=== PATIENT | female | born 1975 | race Caucasian/White ===

== ENCOUNTER 2019-01-01 19:40 | Inpatient (IN) | payer BC, OTHER ==
[2019-01-01] MEDS ORDERED: ELECTROLYTE-148 SOLN 500 ML IV ONE ×2 (19:45→20:45)
[2019-01-01 21:02] LABS: BASO % 0.5 % (0-2.0); EOS % 1.7 % (0-4.5); HEMATOCRIT 29.6 % (32.4-45.2); HEMOGLOBIN 9.5 GM/dL (10.7-15.3); LYMPH % 19.3 % (8-40); MCH 27.4 pg (25.7-33.7); MCHC 32.2 g/dl (32.0-36.0); MEAN CELL VOLUME 85.1 fl (80-96); MEAN PLT VOLUME 9.6 fl (7.5-11.1); MONO % 9.8 % (3.8-10.2); NEUT % 68.7 % (42.8-82.8); PLATELET COUNT 225 K/MM3 (134-434); RBC 3.48 M/mm3 (3.60-5.2); WHITE BLOOD COUNT 15.1 K/mm3 (4.0-10.0)
[2019-01-01] MEDS ORDERED: BETAMET ACET/BETAMET NA PH 30 MG/5 ML VIAL ONE (21:04)
[2019-01-02] MEDS: ELECTROLYTE-148 SOLN 1,000 ML IV SCH (02:30)
[2019-01-02 11:59] VITALS: BMI 33.3
[2019-01-02 12:01] LABS: BASO % 0.2 % (0-2.0); HEMATOCRIT 28.9 % (32.4-45.2); HEMOGLOBIN 9.3 GM/dL (10.7-15.3); LYMPH % 13.2 % (8-40); MCH 27.7 pg (25.7-33.7); MCHC 32.3 g/dl (32.0-36.0); MEAN CELL VOLUME 85.7 fl (80-96); MEAN PLT VOLUME 9.7 fl (7.5-11.1); MONO % 5.8 % (3.8-10.2); NEUT % 80.8 % (42.8-82.8); PLATELET COUNT 230 K/MM3 (134-434); RBC 3.38 M/mm3 (3.60-5.2); WHITE BLOOD COUNT 15.1 K/mm3 (4.0-10.0)
[2019-01-02 12:20] LABS: INR 0.97 (0.83-1.09); PROTHROMBIN TIME (PATIENT) 11.4 SEC (9.7-13.0)
[2019-01-02 12:23] LABS: ACTIVATED PTT 23.7 SECONDS (25.2-36.5)
[2019-01-02 12:30] LABS: BLOOD UREA NITROGEN 4.4 mg/dL (7-18); CALCIUM 9.2 mg/dL (8.5-10.1); CREATININE 0.5 mg/dL (0.55-1.3); POTASSIUM 3.8 mmol/L (3.5-5.1)
--- NOTE | 2019-01-02 14:38 | HP ---
Past Medical History - Admission Chief Complaint: Vaginal bleeding History of Present Illness: 43 yo @ 34.1 weeks gestation, EDC 02/12/19, presents to L&D c/o vaginal bleeding. Sonogram shows evidence of complete placenta previa. Decision was made for admission. Betamethasone injection received. History Source: Patient Limitations to Obtaining History: No Limitations - Past Medical History ...: 5 ...Para: 3 ...Term: 3 ...Spon : 1 ...EDC by Sono: 02/12/19 - Past Surgical History Past Surgical History: Yes: None Hx Myomectomy: No Hx Transabdominal Cerclage: No - Smoking History Smoking history: Never smoked Have you smoked in the past 12 months: No - Alcohol/Substance Use Hx Alcohol Use: No - Social History Usual Living Arrangement: Yes: With Significant Other History of Recent Travel: No Home Medications - Allergies Allergies/Adverse Reactions: Allergies Allergy/AdvReac Type Severity Reaction Status Date / Time No Known Allergies Allergy Verified 01/01/19 21:38 - Home Medications Home Medications: Ambulatory Orders 19 Tablet 1 tab PO DAILY 01/01/19 Review of Systems - Review of Systems Constitutional: reports: No Symptoms Eyes: reports: No Symptoms HENT: reports: No Symptoms Neck: reports: No Symptoms Cardiovascular: reports: No Symptoms Respiratory: reports: No Symptoms Gastrointestinal: reports: No Symptoms Genitourinary: reports: Vaginal Bleeding Breasts: reports: No Symptoms Reported Musculoskeletal: reports: No Symptoms Integumentary: reports: No Symptoms Neurological: reports: No Symptoms Endocrine: reports: No Symptoms Hematology/Lymphatic: reports: No Symptoms Psychiatric: reports: No Symptoms Pain Intensity: 0 Physical Exam - Maternity Vital Signs: Vital Signs Temperature 98.2 F 01/02/19 03:56 Pulse Rate 79 01/02/19 03:56 Respiratory Rate 20 01/02/19 03:56 Blood Pressure 110/58 L 01/02/19 03:56 O2 Sat by Pulse Oximetry (%) Constitutional: Yes: Well Nourished Eyes: Yes: Conjunctiva Clear HENT: Yes: Atraumatic Neck: Yes: Supple Cardiovascular: Yes: Regular Rate and Rhythm Lungs: Clear to auscultation Breast(s): Yes: WNL - Abdominal Exam/OB Number of Fetuses: Single Presentation: Vertex Contractions: No Intensity: Unaware - Vaginal Exam/OB Vaginal Bleediing: Yes - Physical Exam ...Motor Strength: WNL Psychiatric: Yes: Alert, Oriented - Labs Lab Results: CBC, BMP 01/02/19 11:22 01/02/19 11:22 Problem List - Problems (1) Complete placenta previa with hemorrhage, third trimester Code(s): O44.13 - COMPLETE PLACENTA PREVIA WITH HEMORRHAGE, THIRD TRIMESTER (2) with 34 completed weeks gestation Code(s): Z3A.34 - 34 WEEKS GESTATION OF Assessment/Plan 34 weeks gestation Complete Placenta Previa S/P steroid injection Admit to Antepartum. IV fluid Regular diet Daily CBC scheduled for Saturday ( 01/05/19 )
[2019-01-02] MEDS ORDERED: BETAMET ACET/BETAMET NA PH 30 MG/5 ML VIAL IM SCH (19:45)
[2019-01-02] MEDS: FERROUS SO4 325 MG TABLET (FP) PO SCH (22:10)
[2019-01-03] MEDS: ELECTROLYTE-148 SOLN 1,000 ML IV SCH ×2 (05:30→21:30)
--- NOTE | 2019-01-03 06:35 | PN ---
Progress Note (short form) - Note Progress Note: 43 yo @ 34.2 weeks gestation, EDC 02/12/19, presents to L&D c/o vaginal bleeding. Sonogram shows evidence of complete Placenta Previa. Decision was made for admission. Betamethasone injection received. FHR : 150 bpm, good accelerations, occasional drop in heart rate ( to 80-90 bpm ) [place] : No contractions VE : No heavy bleeding, only mild bloody discharge. A/P : Complete Placenta Previa S/P Betamethasone Continuous monitoring Daily CBC For on Saturday or before if necessary Problem List - Problems (1) Complete placenta previa with hemorrhage, third trimester Code(s): O44.13 - COMPLETE PLACENTA PREVIA WITH HEMORRHAGE, THIRD TRIMESTER (2) with 34 completed weeks gestation Code(s): Z3A.34 - 34 WEEKS GESTATION OF
[2019-01-03] MEDS: PRENATAL VITAMINS W/ FOLIC ACID TABLET (FP) PO SCH (10:00)
[2019-01-03] MEDS: FERROUS SO4 325 MG TABLET (FP) PO SCH (10:00)
[2019-01-03 21:54] LABS: HEMATOCRIT 29.4 % (32.4-45.2); HEMOGLOBIN 9.2 GM/dL (10.7-15.3); MCH 27.3 pg (25.7-33.7); MCHC 31.4 g/dl (32.0-36.0); MEAN CELL VOLUME 86.9 fl (80-96); MEAN PLT VOLUME 9.9 fl (7.5-11.1); PLATELET COUNT 233 K/MM3 (134-434); RBC 3.38 M/mm3 (3.60-5.2); RDW 15.2 % (11.6-15.6); WHITE BLOOD COUNT 19.7 K/mm3 (4.0-10.0)
[2019-01-03] MEDS: CEFAZOLIN 1 GM/D5W 1 GM/50 ML BAG IVPB SCH (23:30)
[2019-01-03] MEDS ORDERED: ceFAZolin SODIUM 1 GM VIAL ONE (23:44)
[2019-01-04] MEDS: ELECTROLYTE-148 SOLN 1,000 ML IV SCH (02:00)
[2019-01-04] MEDS ORDERED: ceFAZolin SODIUM 1 GM VIAL ONE ×2 (07:29→15:33)
[2019-01-04] MEDS: CEFAZOLIN 1 GM/D5W 1 GM/50 ML BAG IVPB SCH ×2 (07:30→15:30)
[2019-01-04 08:40] LABS: HEMATOCRIT 25.9 % (32.4-45.2); HEMOGLOBIN 8.4 GM/dL (10.7-15.3); MCH 27.9 pg (25.7-33.7); MCHC 32.5 g/dl (32.0-36.0); MEAN CELL VOLUME 85.9 fl (80-96); MEAN PLT VOLUME 9.9 fl (7.5-11.1); PLATELET COUNT 211 K/MM3 (134-434); RBC 3.02 M/mm3 (3.60-5.2); RDW 15.2 % (11.6-15.6); WHITE BLOOD COUNT 16.2 K/mm3 (4.0-10.0)
[2019-01-04] MEDS: PRENATAL VITAMINS W/ FOLIC ACID TABLET (FP) PO SCH (11:00)
[2019-01-04] MEDS: FERROUS SO4 325 MG TABLET (FP) PO SCH (11:00)
--- NOTE | 2019-01-04 18:27 | PN ---
Progress Note (short form) - Note Progress Note: 43 yo @ 34.3 weeks gestation, EDC 02/12/19, presents to L&D c/o vaginal bleeding. Sonogram shows evidence of complete Placenta Previa. FHR : Reassuring [place] : No contractions VE : No heavy bleeding A/P : Complete Placenta Previa S/P Betamethasone Pre op for NPO after midnight Problem List - Problems (1) Complete placenta previa with hemorrhage, third trimester Code(s): O44.13 - COMPLETE PLACENTA PREVIA WITH HEMORRHAGE, THIRD TRIMESTER (2) with 34 completed weeks gestation Code(s): Z3A.34 - 34 WEEKS GESTATION OF
[2019-01-05] MEDS: DEXTROSE 5%-LACTATED RINGERS 1,000 ML IV SCH (02:00)
--- NOTE | 2019-01-05 07:42 | PN ---
Progress Note (short form) - Note Progress Note: 43 yo @ 34.4 weeks gestation, EDC 02/12/19, presents to L&D c/o vaginal bleeding. Sonogram shows evidence of complete Placenta Previa. She was scheduled for c- section but opted to postpone surgery. FHR : Reassuring [place] : No contractions VE : No bleeding, no ROM A/P : Complete Placenta Previa S/P Betamethasone Transfer to antepartum DVT prophylaxis Daily CBC Regular diet Continue NST Q 4hrs [place] at 36 weeks or before if bleeding Problem List - Problems (1) Complete placenta previa with hemorrhage, third trimester Code(s): O44.13 - COMPLETE PLACENTA PREVIA WITH HEMORRHAGE, THIRD TRIMESTER (2) with 34 completed weeks gestation Code(s): Z3A.34 - 34 WEEKS GESTATION OF
[2019-01-05 08:21] LABS: BASO % 0.3 % (0-2.0); EOS % 1.1 % (0-4.5); HEMATOCRIT 28.2 % (32.4-45.2); HEMOGLOBIN 8.9 GM/dL (10.7-15.3); MCH 27.6 pg (25.7-33.7); MCHC 31.7 g/dl (32.0-36.0); MEAN CELL VOLUME 86.9 fl (80-96); MEAN PLT VOLUME 9.8 fl (7.5-11.1); MONO % 12.3 % (3.8-10.2); NEUT % 67.3 % (42.8-82.8); PLATELET COUNT 209 K/MM3 (134-434); RBC 3.24 M/mm3 (3.60-5.2); RDW 15.1 % (11.6-15.6); WHITE BLOOD COUNT 16.4 K/mm3 (4.0-10.0)
[2019-01-05] MEDS: FERROUS SO4 325 MG TABLET (FP) PO SCH ×2 (10:36→21:17)
[2019-01-05] MEDS: PRENATAL VITAMINS W/ FOLIC ACID TABLET (FP) PO SCH (10:36)
[2019-01-05] MEDS: CEFAZOLIN 1 GM/D5W 1 GM/50 ML BAG IVPB SCH (10:37)
[2019-01-06 08:10] LABS: BASO % 0.2 % (0-2.0); EOS % 1.9 % (0-4.5); HEMATOCRIT 28.6 % (32.4-45.2); HEMOGLOBIN 9.2 GM/dL (10.7-15.3); LYMPH % 19.1 % (8-40); MCH 27.6 pg (25.7-33.7); MCHC 32.3 g/dl (32.0-36.0); MEAN CELL VOLUME 85.5 fl (80-96); MEAN PLT VOLUME 9.6 fl (7.5-11.1); MONO % 10.4 % (3.8-10.2); NEUT % 68.4 % (42.8-82.8); PLATELET COUNT 222 K/MM3 (134-434); RBC 3.35 M/mm3 (3.60-5.2); RDW 15.5 % (11.6-15.6)
--- NOTE | 2019-01-06 10:22 | PN ---
Progress Note (short form) - Note Progress Note: 43 yo @ 34.5 weeks gestation, EDC 02/12/19, presents to L&D c/o vaginal bleeding. Sonogram shows evidence of complete Placenta Previa. She was scheduled for c- section but opted to postpone surgery. FHR : Reassuring [place] : No contractions VE : No bleeding, no ROM A/P : Complete Placenta Previa S/P Betamethasone DVT prophylaxis Daily CBC Regular diet Continue NST Q 4hrs Consider at 36 weeks or before if bleeding Problem List - Problems (1) Complete placenta previa with hemorrhage, third trimester Code(s): O44.13 - COMPLETE PLACENTA PREVIA WITH HEMORRHAGE, THIRD TRIMESTER (2) with 34 completed weeks gestation Code(s): Z3A.34 - 34 WEEKS GESTATION OF
[2019-01-06] MEDS: FERROUS SO4 325 MG TABLET (FP) PO SCH ×2 (10:50→21:50)
[2019-01-06] MEDS: PRENATAL VITAMINS W/ FOLIC ACID TABLET (FP) PO SCH (10:50)
--- NOTE | 2019-01-07 07:07 | PN ---
Progress Note (SOAP) - Current Medications Current Medications: Active Medications Ferrous Sulfate (Feosol -) 325 mg PO BID [facility] Last Admin: 01/06/19 21:50 Dose: Not Given Parenteral Electrolytes (Plasma-Lyte 148 -) 1,000 mls @ 125 mls/hr IV ASDIR [facility] Last Admin: 01/04/19 02:00 Dose: 125 mls/hr Dextrose/Lactated Ringer's (D5-Lr -) 1,000 mls @ 125 mls/hr IV ASDIR [facility] Last Admin: 01/05/19 02:00 Dose: 125 mls/hr Multivit/Folic Acid/Iron ( Vitamins (Sjr) -) 1 tab PO DAILY [facility] Last Admin: 01/06/19 10:50 Dose: 1 tab - Objective Vital Signs: Vital Signs Temperature 98.2 F 01/06/19 22:00 Pulse Rate 95 H 01/06/19 22:00 Respiratory Rate 18 01/06/19 22:00 Blood Pressure 130/75 01/06/19 22:00 O2 Sat by Pulse Oximetry (%) Constitutional: Yes: Well Nourished, No Distress Neck: Yes: WNL Cardiovascular: Yes: WNL Gastrointestinal: Yes: WNL, Soft Extremities: Yes: WNL Edema: No Neurological: Yes: WNL, Alert, Oriented Labs Lab Results: CBC, BMP 01/06/19 07:26 01/02/19 11:22 Problem List - Problems (1) Complete placenta previa with hemorrhage, third trimester Code(s): O44.13 - COMPLETE PLACENTA PREVIA WITH HEMORRHAGE, THIRD TRIMESTER Assessment/Plan Complete Previa
[2019-01-07] MEDS: PRENATAL VITAMINS W/ FOLIC ACID TABLET (FP) PO SCH (09:54)
[2019-01-07] MEDS: FERROUS SO4 325 MG TABLET (FP) PO SCH ×2 (09:58→22:47)
[2019-01-07 14:01] LABS: BASO % 0.4 % (0-2.0); EOS % 1.2 % (0-4.5); HEMATOCRIT 29.9 % (32.4-45.2); HEMOGLOBIN 9.6 GM/dL (10.7-15.3); LYMPH % 17.6 % (8-40); MCH 27.4 pg (25.7-33.7); MEAN CELL VOLUME 85.6 fl (80-96); MEAN PLT VOLUME 9.3 fl (7.5-11.1); MONO % 9.2 % (3.8-10.2); NEUT % 71.6 % (42.8-82.8); PLATELET COUNT 243 K/MM3 (134-434); RBC 3.49 M/mm3 (3.60-5.2); RDW 15.6 % (11.6-15.6); WHITE BLOOD COUNT 14.8 K/mm3 (4.0-10.0)
[2019-01-07] MEDS: DEXTROSE 5%-LACTATED RINGERS 1,000 ML IV SCH ×2 (14:24)
--- NOTE | 2019-01-08 06:03 | PN ---
Progress Note, Physician History of Present Illness: 43 y/o female here, admitted with complete placenta previa. Occasional spotting , no heavy bleeding. CBC stable. +FM. NSTs reactive - Current Medication List Current Medications: Active Medications Ferrous Sulfate (Feosol -) 325 mg PO BID [facility] Last Admin: 01/07/19 22:47 Dose: Not Given Dextrose/Lactated Ringer's (D5-Lr -) 1,000 mls @ 125 mls/hr IV ASDIR [facility] Last Admin: 01/07/19 14:24 Dose: 125 mls/hr Multivit/Folic Acid/Iron ( Vitamins (Sjr) -) 1 tab PO DAILY [facility] Last Admin: 01/07/19 09:54 Dose: 1 tab - Objective Vital Signs: Vital Signs Temperature 98.3 F 01/08/19 02:00 Pulse Rate 88 01/08/19 02:00 Respiratory Rate 18 01/08/19 02:00 Blood Pressure 126/66 01/08/19 02:00 O2 Sat by Pulse Oximetry (%) Constitutional: Yes: Well Nourished, No Distress, Calm Cardiovascular: Yes: Regular Rate and Rhythm Respiratory: Yes: Regular Gastrointestinal: Yes: Normal Bowel Sounds, Soft Extremities: Yes: WNL Neurological: Yes: Alert, Oriented Psychiatric: Yes: Alert, Oriented Labs: CBC, BMP 01/07/19 13:40 01/02/19 11:22 INR, PTT INR 0.97 (0.83-1.09) 01/02/19 11:22 Problem List - Problems (1) Complete placenta previa with hemorrhage, third trimester Code(s): O44.13 - COMPLETE PLACENTA PREVIA WITH HEMORRHAGE, THIRD TRIMESTER Assessment/Plan Continue inpatient care daily CBC to keep 2 units PRBC crossmatched with bloodbank daily NST plan for c section at 36 weeks or before if has bleeding
[2019-01-08] MEDS: CEFAZOLIN 1 GM/D5W 1 GM/50 ML BAG IVPB SCH (07:43)
[2019-01-08] MEDS: PRENATAL VITAMINS W/ FOLIC ACID TABLET (FP) PO SCH (09:51)
[2019-01-08] MEDS: FERROUS SO4 325 MG TABLET (FP) PO SCH ×2 (09:54→21:14)
[2019-01-08 10:25] LABS: BASO % 0.2 % (0-2.0); EOS % 1.7 % (0-4.5); HEMATOCRIT 31.1 % (32.4-45.2); HEMOGLOBIN 9.9 GM/dL (10.7-15.3); LYMPH % 19.1 % (8-40); MCH 27.8 pg (25.7-33.7); MEAN CELL VOLUME 86.8 fl (80-96); MEAN PLT VOLUME 10.1 fl (7.5-11.1); MONO % 7.9 % (3.8-10.2); NEUT % 71.1 % (42.8-82.8); PLATELET COUNT 237 K/MM3 (134-434); RBC 3.58 M/mm3 (3.60-5.2); RDW 15.6 % (11.6-15.6); WHITE BLOOD COUNT 14.5 K/mm3 (4.0-10.0)
[2019-01-09] MEDS: PRENATAL VITAMINS W/ FOLIC ACID TABLET (FP) PO SCH (09:33)
[2019-01-09 10:52] LABS: BASO % 0.2 % (0-2.0); EOS % 1.5 % (0-4.5); HEMATOCRIT 29.5 % (32.4-45.2); HEMOGLOBIN 9.7 GM/dL (10.7-15.3); LYMPH % 16.9 % (8-40); MCH 27.9 pg (25.7-33.7); MCHC 32.7 g/dl (32.0-36.0); MEAN CELL VOLUME 85.2 fl (80-96); MEAN PLT VOLUME 9.8 fl (7.5-11.1); NEUT % 72.4 % (42.8-82.8); PLATELET COUNT 225 K/MM3 (134-434); RBC 3.47 M/mm3 (3.60-5.2); RDW 15.6 % (11.6-15.6); WHITE BLOOD COUNT 13.8 K/mm3 (4.0-10.0)
[2019-01-09] MEDS: FERROUS SO4 325 MG TABLET (FP) PO SCH (19:05)
[2019-01-10] MEDS: PRENATAL VITAMINS W/ FOLIC ACID TABLET (FP) PO SCH (09:24)
[2019-01-10] MEDS: FERROUS SO4 325 MG TABLET (FP) PO SCH ×2 (09:24→21:41)
[2019-01-10 10:23] LABS: BASO % 0.2 % (0-2.0); EOS % 1.1 % (0-4.5); HEMATOCRIT 31.7 % (32.4-45.2); HEMOGLOBIN 10.2 GM/dL (10.7-15.3); LYMPH % 18.7 % (8-40); MCH 27.6 pg (25.7-33.7); MCHC 32.1 g/dl (32.0-36.0); MEAN PLT VOLUME 9.7 fl (7.5-11.1); MONO % 5.7 % (3.8-10.2); NEUT % 74.3 % (42.8-82.8); PLATELET COUNT 242 K/MM3 (134-434); RBC 3.68 M/mm3 (3.60-5.2); RDW 15.9 % (11.6-15.6); WHITE BLOOD COUNT 13.9 K/mm3 (4.0-10.0)
--- NOTE | 2019-01-10 13:22 | PN ---
Ante-Partal Exam - Subjective Subjective: Pt doing well today pt seen at 9 am Vital Signs: Vital Signs Temperature 98.2 F 01/09/19 20:40 Pulse Rate 93 H 01/09/19 20:40 Respiratory Rate 18 01/09/19 20:40 Blood Pressure 117/60 01/09/19 20:40 O2 Sat by Pulse Oximetry (%) Bleeding: No Headache: No Visual changes: No Right upper quadrant pain: No - Contractions Contractions: No Intensity: Unaware - Exam during Labor Variability: Moderate Category: I Monitor Accelerations: Present Monitor Decelerations: None - Assessment/Plan Assessment/Plan: Complete Previa stable no bleeding Pt refusing CS today Bed rest cbc in am
--- NOTE | 2019-01-10 13:24 | PN ---
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
[2019-01-10] MEDS: DOCUSATE SODIUM 100 MG CAPSULE (FP) PO SCH (21:41)
--- NOTE | 2019-01-11 09:56 | PN ---
Ante-Partal Exam - Subjective Subjective: Pt doing well seen at bedside old spotting refusing CS Vital Signs: Vital Signs Temperature 98.7 F 01/10/19 22:00 Pulse Rate 91 H 01/10/19 22:00 Respiratory Rate 18 01/10/19 22:00 Blood Pressure 119/67 01/10/19 22:00 O2 Sat by Pulse Oximetry (%) Bleeding: Yes (dark blood) Headache: No Visual changes: No Right upper quadrant pain: No - Exam during Labor Heart Rate: 140 Variability: Moderate Category: I Monitor Accelerations: Present Monitor Decelerations: None Presentation: Vertex - Intrapartum Hemorrhage Risk Risk Score: 1 Risk Level: Medium Risk - Assessment/Plan Assessment/Plan: Complete previa refusing CS stable cbc in am
[2019-01-11] MEDS: FERROUS SO4 325 MG TABLET (FP) PO SCH ×2 (10:10→22:18)
[2019-01-11] MEDS: PRENATAL VITAMINS W/ FOLIC ACID TABLET (FP) PO SCH (10:10)
[2019-01-11] MEDS: DOCUSATE SODIUM 100 MG CAPSULE (FP) PO SCH ×2 (10:10→22:18)
[2019-01-12] MEDS: DOCUSATE SODIUM 100 MG CAPSULE (FP) PO SCH ×2 (09:46→22:44)
[2019-01-12] MEDS: FERROUS SO4 325 MG TABLET (FP) PO SCH ×2 (09:46→22:00)
[2019-01-12] MEDS: PRENATAL VITAMINS W/ FOLIC ACID TABLET (FP) PO SCH (09:46)
--- NOTE | 2019-01-12 11:58 | PN ---
Ante-Partal Exam - Subjective Subjective: Pt doing well desires to have CS next saturday Vital Signs: Vital Signs Temperature 98.4 F 01/12/19 09:06 Pulse Rate 88 01/12/19 09:06 Respiratory Rate 18 01/12/19 09:06 Blood Pressure 108/59 L 01/12/19 09:06 O2 Sat by Pulse Oximetry (%) Bleeding: No Headache: No Visual changes: No Right upper quadrant pain: No - Contractions Contractions: No - Exam during Labor Variability: Moderate Heart Rate Location: [facility] Category: I Presentation: Vertex - Assessment/Plan Assessment/Plan: Complete previa stable no active bleeding pt desires to wait til next saturday for CS Plan Continue present plan
[2019-01-12] MEDS: DEXTROSE 5%-LACTATED RINGERS 1,000 ML IV SCH (14:30)
[2019-01-13 08:02] LABS: BASO % 0.5 % (0-2.0); EOS % 1.2 % (0-4.5); HEMATOCRIT 30.7 % (32.4-45.2); HEMOGLOBIN 9.8 GM/dL (10.7-15.3); LYMPH % 19.9 % (8-40); MCH 27.9 pg (25.7-33.7); MEAN PLT VOLUME 10.2 fl (7.5-11.1); MONO % 9.9 % (3.8-10.2); NEUT % 68.5 % (42.8-82.8); PLATELET COUNT 241 K/MM3 (134-434); RBC 3.53 M/mm3 (3.60-5.2); RDW 16.6 % (11.6-15.6); WHITE BLOOD COUNT 13.8 K/mm3 (4.0-10.0)
[2019-01-13] MEDS: FERROUS SO4 325 MG TABLET (FP) PO SCH ×3 (10:08→22:46)
[2019-01-13] MEDS: DOCUSATE SODIUM 100 MG CAPSULE (FP) PO SCH ×2 (10:08→21:54)
[2019-01-13] MEDS: PRENATAL VITAMINS W/ FOLIC ACID TABLET (FP) PO SCH (10:08)
[2019-01-13] MEDS: DEXTROSE 5%-LACTATED RINGERS 1,000 ML IV SCH ×4 (12:23→20:18)
--- NOTE | 2019-01-13 23:27 | PN ---
Ante-Partal Exam - Subjective Subjective: Pt without active bleeding Vital Signs: Vital Signs Temperature 98.2 F 01/13/19 09:30 Pulse Rate 85 01/13/19 09:30 Respiratory Rate 17 01/13/19 09:30 Blood Pressure 128/76 01/13/19 09:30 O2 Sat by Pulse Oximetry (%) Bleeding: No Headache: No Visual changes: No Right upper quadrant pain: No - Contractions Contractions: No - Exam during Labor Heart Rate: 140 Variability: Moderate Heart Rate Location: Q Category: I Monitor Decelerations: None Amniotic Membrane Status: Intact - Assessment/Plan Assessment/Plan: Complete previa no bleeding refusing CS saturday
[2019-01-14] MEDS: DEXTROSE 5%-LACTATED RINGERS 1,000 ML IV SCH ×3 (10:17→23:09)
[2019-01-14] MEDS: DOCUSATE SODIUM 100 MG CAPSULE (FP) PO SCH ×2 (10:27→23:08)
[2019-01-14] MEDS: PRENATAL VITAMINS W/ FOLIC ACID TABLET (FP) PO SCH (10:28)
[2019-01-14] MEDS: FERROUS SO4 325 MG TABLET (FP) PO SCH ×2 (10:28→23:09)
--- NOTE | 2019-01-14 17:32 | PN ---
Ante-Partal Exam - Subjective Subjective: Pt seen/evaluated. No complaints no VB for 3 days per pt NST reactive Vital Signs: Vital Signs Temperature 99.1 F 01/14/19 17:27 Pulse Rate 95 H 01/14/19 17:27 Respiratory Rate 20 01/14/19 17:27 Blood Pressure 116/69 01/14/19 17:27 O2 Sat by Pulse Oximetry (%) Bleeding: No Headache: No Visual changes: No Right upper quadrant pain: No - Contractions Contractions: No - Exam during Labor Category: I Monitor Accelerations: Present Monitor Decelerations: None Amniotic Membrane Status: Intact - Assessment/Plan Assessment/Plan: 43 y/o with complete placenta previa stable CBC updated Type and Screen today - needs update every 3 days to keep units crossmatched/updated continue current management plan for c section at [address] berger returns
[2019-01-15] MEDS: FERROUS SO4 325 MG TABLET (FP) PO SCH (09:19)
[2019-01-15] MEDS: PRENATAL VITAMINS W/ FOLIC ACID TABLET (FP) PO SCH (09:19)
[2019-01-15] MEDS: DOCUSATE SODIUM 100 MG CAPSULE (FP) PO SCH ×2 (09:19→22:45)
[2019-01-16] MEDS: FERROUS SO4 325 MG TABLET (FP) PO SCH ×3 (00:50→22:03)
--- NOTE | 2019-01-16 08:43 | PN ---
Ante-Partal Exam - Subjective Subjective: Pt remains stable Vital Signs: Vital Signs Temperature 98.3 F 01/15/19 22:00 Pulse Rate 90 01/15/19 22:00 Respiratory Rate 20 01/15/19 22:00 Blood Pressure 100/56 L 01/15/19 22:00 O2 Sat by Pulse Oximetry (%) Bleeding: No Headache: No Visual changes: No Right upper quadrant pain: No - Contractions Contractions: No - Exam during Labor Category: I Monitor Accelerations: Present Amniotic Membrane Status: Intact Presentation: Vertex - Assessment/Plan Assessment/Plan: Complete Previa stable Plan BPP today
[2019-01-16] MEDS: DOCUSATE SODIUM 100 MG CAPSULE (FP) PO SCH ×2 (10:48→22:03)
[2019-01-16] MEDS: PRENATAL VITAMINS W/ FOLIC ACID TABLET (FP) PO SCH (10:48)
[2019-01-17] MEDS: PRENATAL VITAMINS W/ FOLIC ACID TABLET (FP) PO SCH (09:45)
[2019-01-17] MEDS: DOCUSATE SODIUM 100 MG CAPSULE (FP) PO SCH ×2 (09:45→22:08)
[2019-01-17] MEDS: FERROUS SO4 325 MG TABLET (FP) PO SCH ×2 (09:45→22:08)
--- NOTE | 2019-01-17 21:37 | PN ---
Ante-Partal Exam - Subjective Subjective: Late entry for 1899 Vital Signs: Vital Signs Temperature 98.7 F 01/17/19 18:00 Pulse Rate 96 H 01/17/19 18:00 Respiratory Rate 20 01/17/19 18:00 Blood Pressure 120/76 01/17/19 18:00 O2 Sat by Pulse Oximetry (%) Bleeding: No Headache: No Visual changes: No Right upper quadrant pain: No - Exam during Labor Variability: Moderate Monitor Accelerations: Present Monitor Decelerations: None Amniotic Membrane Status: Intact - Assessment/Plan Assessment/Plan: complete previa type and screen updated today CBC stable plan for c section next week will keep NPO after midnight Saturday night into Saturday in preparation for possible c section
--- NOTE | 2019-01-18 06:32 | PN ---
Ante-Partal Exam - Subjective Subjective: Stable, no bleeding +FM no ctx/LOF Vital Signs: Vital Signs Temperature 98.0 F 01/18/19 06:00 Pulse Rate 96 H 01/18/19 06:00 Respiratory Rate 18 01/18/19 06:00 Blood Pressure 118/75 01/18/19 06:00 O2 Sat by Pulse Oximetry (%) Bleeding: No Headache: No Visual changes: No Right upper quadrant pain: No - Contractions Contractions: No - Exam during Labor Variability: Moderate Category: I Monitor Accelerations: Present Monitor Decelerations: None Amniotic Membrane Status: Intact Presentation: Vertex - Assessment/Plan Assessment/Plan: Complete Previa Stable Type and screen active will keep NPO after midnight as plan was for c section tomorrow 01/[address] Godinez
[2019-01-18] MEDS: DOCUSATE SODIUM 100 MG CAPSULE (FP) PO SCH ×2 (10:58→22:39)
[2019-01-18] MEDS: FERROUS SO4 325 MG TABLET (FP) PO SCH ×2 (10:58→22:39)
[2019-01-18] MEDS: PRENATAL VITAMINS W/ FOLIC ACID TABLET (FP) PO SCH (10:58)
[2019-01-18 15:31] LABS: RBC 3.81 M/mm3 (3.60-5.2)
[2019-01-18 15:32] LABS: BASO % 0.5 % (0-2.0); HEMATOCRIT 32.7 % (32.4-45.2); HEMOGLOBIN 10.7 GM/dL (10.7-15.3); LYMPH % 18.2 % (8-40); MCH 28.2 pg (25.7-33.7); MCHC 32.8 g/dl (32.0-36.0); MEAN CELL VOLUME 85.9 fl (80-96); MEAN PLT VOLUME 9.9 fl (7.5-11.1); MONO % 12.4 % (3.8-10.2); NEUT % 67.9 % (42.8-82.8); PLATELET COUNT 238 K/MM3 (134-434); RDW 16.4 % (11.6-15.6)
[2019-01-18 15:41] LABS: INR 0.98 (0.83-1.09); PROTHROMBIN TIME (PATIENT) 11.6 SEC (9.7-13.0)
[2019-01-18 15:43] LABS: ACTIVATED PTT 24.1 SECONDS (25.2-36.5)
[2019-01-18 15:55] LABS: BLOOD UREA NITROGEN 6.7 mg/dL (7-18); CREATININE 0.5 mg/dL (0.55-1.3); POTASSIUM 3.9 mmol/L (3.5-5.1)
[2019-01-19] MEDS: ELECTROLYTE-148 SOLN 1,000 ML IV SCH ×2 (00:31→08:00)
--- NOTE | 2019-01-19 09:35 | PN ---
Ante-Partal Exam - Subjective Subjective: Covering OB note Pt doing well. Pt has been refusing CS Vital Signs: Vital Signs Temperature 98.0 F 01/18/19 22:00 Pulse Rate 101 H 01/18/19 22:00 Respiratory Rate 18 01/18/19 22:00 Blood Pressure 122/70 01/18/19 22:00 O2 Sat by Pulse Oximetry (%) Bleeding: No Headache: No Visual changes: No Right upper quadrant pain: No - Contractions Contractions: No - Exam during Labor Category: I Monitor Accelerations: Present Monitor Decelerations: None Amniotic Membrane Status: Intact - Intrapartum Hemorrhage Risk Risk Score: 1 Risk Level: Medium Risk - Assessment/Plan Assessment/Plan: placenta previa complete pt doing well Plan continue present mangement with Dr Godinez
[2019-01-19] MEDS: DOCUSATE SODIUM 100 MG CAPSULE (FP) PO SCH ×2 (10:10→22:03)
[2019-01-19] MEDS: FERROUS SO4 325 MG TABLET (FP) PO SCH ×2 (10:10→22:03)
[2019-01-19] MEDS: PRENATAL VITAMINS W/ FOLIC ACID TABLET (FP) PO SCH (10:11)
[2019-01-19 13:37] LABS: BASO % 0.5 % (0-2.0); EOS % 0.7 % (0-4.5); HEMATOCRIT 31.7 % (32.4-45.2); HEMOGLOBIN 10.3 GM/dL (10.7-15.3); LYMPH % 16.4 % (8-40); MCH 27.7 pg (25.7-33.7); MCHC 32.3 g/dl (32.0-36.0); MEAN CELL VOLUME 85.6 fl (80-96); MEAN PLT VOLUME 9.9 fl (7.5-11.1); MONO % 8.4 % (3.8-10.2); PLATELET COUNT 219 K/MM3 (134-434); RDW 16.5 % (11.6-15.6); WHITE BLOOD COUNT 14.2 K/mm3 (4.0-10.0)
[2019-01-19] MEDS ORDERED: KETOROLAC TROMETHAMINE 30 MG/1 ML VIAL ONE (14:14)
[2019-01-19] MEDS ORDERED: ceFAZolin SODIUM 1 GM VIAL ONE (14:14)
[2019-01-19] MEDS ORDERED: ONDANSETRON 4 MG/2 ML VIAL IVPUSH PRN (14:25)
[2019-01-19] MEDS ORDERED: CITRIC ACID/SODIUM CITRATE 30 ML UNIT-DOSE CUP PO ONE (15:15)
[2019-01-19] MEDS ORDERED: ELECTROLYTE-148 SOLN 1,000 ML IV SCH (15:15)
[2019-01-19] MEDS ORDERED: ELECTROLYTE-148 SOLN 1,000 ML IV ONE (15:15)
[2019-01-19] MEDS ORDERED: OXYTOCIN 20 UNITS in 0.9% NS 20 UNIT/1,000 ML INFUS.BAG IV ONE ×3 (15:21→19:58)
--- NOTE | 2019-01-19 15:22 | PN ---
Progress Note (short form) - Note Progress Note: 43 yo @ 36.4 weeks gestation, EDC 02/12/19, is pre op for primary c- section due to complete Placenta Previa FHR : Reassuring [place] : No contractions VE : Brown discharge, no ROM A/P : Complete Placenta Previa S/P Betamethasone Pre op for Consent signed Anesthesia to see patient Problem List - Problems (1) Complete placenta previa with hemorrhage, third trimester Code(s): O44.13 - COMPLETE PLACENTA PREVIA WITH HEMORRHAGE, THIRD TRIMESTER (2) with 34 completed weeks gestation Code(s): Z3A.34 - 34 WEEKS GESTATION OF
[2019-01-19] MEDS ORDERED: DEXAMETHASONE SOD PHOSPHATE 4 MG/1 ML VIAL ONE (15:29)
[2019-01-19] MEDS ORDERED: ePHEDrine SULFATE 50 MG/1 ML AMPULE ONE (15:37)
[2019-01-19] MEDS ORDERED: IBUPROFEN 800 MG/8 ML IJ IVPB PRN (16:31)
[2019-01-19] MEDS ORDERED: METHYLERGONOVINE MALEATE 0.2 MG/1 ML AMP IM PRN (16:31)
[2019-01-19] MEDS ORDERED: oxyCODONE HCL 5 MG TABLET PO PRN (16:31)
--- NOTE | 2019-01-19 16:35 | OP ---
Operative Note - Note: Operative Date: 01/19/19 Pre-Operative Diagnosis: Complete Placenta Previa Operation: Primary Low Transverse Findings: Baby girl in LOT position Complete Placenta Previa Post-Operative Diagnosis: Same as Pre-op Surgeon: Jory Godinez Community Health Outreach Worker: Rebel Toney Anesthesia: Spinal Specimens Removed: Placenta Estimated Blood Loss (mls): 800
--- NOTE | 2019-01-19 16:36 | PN ---
Progress Note (short form) - Note Progress Note: I assisted at the primary section for the entirety of the case.
[2019-01-19] MEDS ORDERED: OXYTOCIN 20 UNITS in 0.9% NS 20 UNIT/1,000 ML INFUS.BAG IV SCH (16:45)
[2019-01-20 08:59] LABS: BASO % 0.2 % (0-2.0)
[2019-01-20 09:12] LABS: HEMATOCRIT 21.7 % (32.4-45.2); LYMPH % 11.3 % (8-40); MCHC 32.3 g/dl (32.0-36.0); MEAN CELL VOLUME 86.6 fl (80-96); MEAN PLT VOLUME 10.1 fl (7.5-11.1); MONO % 10.4 % (3.8-10.2); NEUT % 78.1 % (42.8-82.8); PLATELET COUNT 204 K/MM3 (134-434); RDW 16.9 % (11.6-15.6); WHITE BLOOD COUNT 25.6 K/mm3 (4.0-10.0)
--- NOTE | 2019-01-20 09:56 | OP ---
DATE OF OPERATION: 01/19/2019 PREOPERATIVE DIAGNOSIS: Complete placenta previa and 36 weeks' gestation. POSTOPERATIVE DIAGNOSIS: Complete placenta previa and 36 weeks' gestation. PROCEDURE PERFORMED: Primary low transverse section. SURGEON: Jory Godinez M.D. CONSTRUCTION ELECTRICIAN: Rebel Michelle MD ANESTHESIA: Spinal. COMPLICATIONS: None. ESTIMATED BLOOD LOSS: 800 mL. DESCRIPTION OF PROCEDURE: The patient was taken to the operating room, where spinal anesthesia was administered. The patient was then prepped and draped in the proper sterile fashion. A Pfannenstiel skin incision was made and carried down through the underlying layer of fascia. The fascia was incised in the midline and extended laterally. The superior aspect of the fascial incision was then grasped with a Ria clamp, elevated, and the rectus muscle dissected off bluntly. Attention was then turned to the inferior aspect of the fascial incision, which , in a similar fashion, was then grasped with a Ria clamp, elevated, and the rectus muscle dissected off bluntly. The rectus muscle was then in the midline. The peritoneum was identified and entered sharply with Metzenbaum scissors. The vesicouterine peritoneum was then grasped with a pickup and entered sharply with Metzenbaum scissors. This incision was extended laterally and a bladder flap created digitally. A bladder blade was inserted. The lower uterine segment was incised using a 10 blade. This incision was extended laterally. The head was delivered atraumatically. Nose and mouth were suctioned and the cord was clamped and cut. The was handed to the awaiting chemistry tutor. The placenta was removed manually over the cervical os.The uterus was exteriorized and cleared of all clots and debris. The uterine incision was repaired using 0 Biosyn in a running locked fashion. A second layer of the same suture was used as a means to provide excellent hemostasis. Then the pelvis was completely irrigated. The uterus was returned to the abdomen. Then the peritoneum was closed using 2-0 Biosyn. The fascia was reapproximated using 0 Vicryl in a running fashion. The skin was closed in subcuticular fashion using 3-0 Vicryl. The patient tolerated the procedure well. The patient was then taken to the PACU in stable condition. PATHOLOGY: Placenta. JORY GODINEZ M.D. [id number] MTDD
[2019-01-20] MEDS: FERROUS SO4 325 MG TABLET (FP) PO SCH ×2 (10:03→22:35)
[2019-01-20] MEDS: PRENATAL VITAMINS W/ FOLIC ACID TABLET (FP) PO SCH (10:03)
[2019-01-20] MEDS: DOCUSATE SODIUM 100 MG CAPSULE (FP) PO SCH ×2 (10:10→22:34)
[2019-01-20] MEDS: CEFAZOLIN 1 GM/D5W 1 GM/50 ML BAG IVPB SCH ×2 (11:24→17:00)
[2019-01-20 12:02] LABS: ANISOCYTOSIS 1+; MACROCYTOSIS 0; PLATELET ESTIMATE NORMAL
--- NOTE | 2019-01-20 14:41 | PN ---
Post Progress Note - Subjective Subjective: 43 yo with complete Placenta Previa, status post delivery, seen and evaluated. She c/o shortness of breath. She was found to be severely anemic most likely due to blood loss. Post Day: 1 Type of Delivery: Primary C/S Vital Signs: Vital Signs Temperature 98.6 F 01/20/19 12:32 Pulse Rate 96 H 01/20/19 12:32 Respiratory Rate 18 01/20/19 12:32 Blood Pressure 102/54 L 01/20/19 12:32 O2 Sat by Pulse Oximetry (%) 98 01/19/19 21:00 Breast Exam: Yes: Soft Uterus: Yes: Fundus Firm Incision: Yes: Dressing dry and intact Abdomen/GI: Yes: Abdomen soft, Tolerating PO Lochia: Yes: Rubra Lochia, amount: Heavy Extremities: Yes: Calves non-tender Perineum: Yes: Intact Activity: Other (She's lying in bed) - Labs Labs: CBC WBC 25.6 K/mm3 (4.0-10.0) H 01/20/19 08:16 RBC 2.50 M/mm3 (3.60-5.2) L 01/20/19 08:16 Hgb 7.0 GM/dL (10.7-15.3) L 01/20/19 08:16 Hct 21.7 % (32.4-45.2) L D 01/20/19 08:16 MCV 86.6 fl (80-96) 01/20/19 08:16 MCH 28.0 pg (25.7-33.7) 01/20/19 08:16 MCHC 32.3 g/dl (32.0-36.0) 01/20/19 08:16 RDW 16.9 % (11.6-15.6) H 01/20/19 08:16 Plt Count 204 K/MM3 (134-434) 01/20/19 08:16 MPV 10.1 fl (7.5-11.1) 01/20/19 08:16 Absolute Neuts (auto) 20.0 K/mm3 (1.5-8.0) H 01/20/19 08:16 Neutrophils % 78.1 % (42.8-82.8) 01/20/19 08:16 Neutrophils % (Manual) 82.2 % (42.8-82.8) 01/20/19 08:16 Band Neutrophils % 0.0 % 01/20/19 08:16 Lymphocytes % 11.3 % (8-40) D 01/20/19 08:16 Lymphocytes % (Manual) 9.9 % (8-40) 01/20/19 08:16 Monocytes % 10.4 % (3.8-10.2) H 01/20/19 08:16 Monocytes % (Manual) 8 % (3.8-10.2) 01/20/19 08:16 Eosinophils % 0.0 % (0-4.5) D 01/20/19 08:16 Eosinophils % (Manual) 0.0 % (0-4.5) 01/20/19 08:16 Basophils % 0.2 % (0-2.0) 01/20/19 08:16 Basophils % (Manual) 0.0 % (0-2.0) 01/20/19 08:16 Myelocytes % (Man) 0 % (0-2) 01/20/19 08:16 Promyelocytes % (Man) 0 % (0-2) 01/20/19 08:16 Blast Cells % (Manual) 0 % (0-0) 01/20/19 08:16 Nucleated RBC % 0 % (0-0) 01/20/19 08:16 Metamyelocytes 0 % (0-2) 01/20/19 08:16 Hypochromia 0 01/20/19 08:16 Platelet Estimate Normal 01/20/19 08:16 Polychromasia 1+ 01/20/19 08:16 Poikilocytosis 0 01/20/19 08:16 Anisocytosis 1+ 01/20/19 08:16 Microcytosis 1+ 01/20/19 08:16 Macrocytosis 0 01/20/19 08:16 Problem List - Problems (1) Complete placenta previa with hemorrhage, third trimester Code(s): O44.13 - COMPLETE PLACENTA PREVIA WITH HEMORRHAGE, THIRD TRIMESTER (2) with 34 completed weeks gestation Code(s): Z3A.34 - 34 WEEKS GESTATION OF (3) Status post primary low transverse section Code(s): Z98.891 - HISTORY OF UTERINE SCAR FROM PREVIOUS SURGERY (4) Severe anemia Code(s): D64.9 - ANEMIA, UNSPECIFIED Assessment/Plan Status post primary Severe anemia 2 units of PRBc's Consent signed Analgesia as needed Repeat CBC 4 hours post transfusion. Continue close observation
--- NOTE | 2019-01-20 16:19 | PN ---
Progress Note (short form) - Note Progress Note: Anesthesia POD#1 S/P under Spinal and Duramorph VSS,hg dropped getting blood transfusion,no N/V Legs strength full. Arianne Potts MD.
[2019-01-20] MEDS ORDERED: BISACODYL 10 MG SUPP.RECT RC PRN (16:31)
[2019-01-20] MEDS ORDERED: ACETAMINOPHEN 1000 MG/100 ML VIAL (NON FORMULARY) IVPB ONE (18:28)
[2019-01-20] MEDS: IBUPROFEN 600 MG TABLET (FP) PO PRN (21:36)
[2019-01-20] MEDS: SIMETHICONE 80 MG TAB.CHEW (FP) PO PRN (21:38)
[2019-01-21] MEDS: CEFAZOLIN 1 GM/D5W 1 GM/50 ML BAG IVPB SCH ×3 (01:23→17:36)
[2019-01-21] MEDS: SIMETHICONE 80 MG TAB.CHEW (FP) PO PRN (03:34)
[2019-01-21] MEDS: IBUPROFEN 600 MG TABLET (FP) PO PRN ×2 (03:34→20:23)
[2019-01-21] MEDS: ACETAMINOPHEN 325 MG TABLET (FP) PO PRN ×2 (03:38→20:24)
[2019-01-21 07:27] LABS: HEMATOCRIT 25.4 % (32.4-45.2); HEMOGLOBIN 8.5 GM/dL (10.7-15.3); MCH 28.8 pg (25.7-33.7); MCHC 33.3 g/dl (32.0-36.0); MEAN CELL VOLUME 86.3 fl (80-96); MEAN PLT VOLUME 9.7 fl (7.5-11.1); PLATELET COUNT 200 K/MM3 (134-434); RBC 2.94 M/mm3 (3.60-5.2); RDW 15.8 % (11.6-15.6)
[2019-01-21] MEDS: FERROUS SO4 325 MG TABLET (FP) PO SCH ×2 (09:13→21:36)
[2019-01-21] MEDS: DOCUSATE SODIUM 100 MG CAPSULE (FP) PO SCH ×2 (09:14→21:36)
[2019-01-21] MEDS: PRENATAL VITAMINS W/ FOLIC ACID TABLET (FP) PO SCH (09:14)
--- NOTE | 2019-01-21 12:39 | PN ---
Post Progress Note - Subjective Subjective: Pt doing well, OOB in chair eating lunch upon my arrival. Pain controlled. Voiding, passing flatus. Tolerating diet. s/p 2 units PRBC for Hgb 7.0. Hgb today now 8.5. No longer tachycardic. No complaints. Post Day: 2 Type of Delivery: Primary C/S Vital Signs: Vital Signs Temperature 98.3 F 01/21/19 10:00 Pulse Rate 77 01/21/19 10:00 Respiratory Rate 20 01/21/19 10:00 Blood Pressure 118/70 01/21/19 10:00 O2 Sat by Pulse Oximetry (%) 98 01/19/19 21:00 Uterus: Yes: Fundus Firm Incision: Yes: Dressing dry and intact Abdomen/GI: Yes: Abdomen soft Extremities: Yes: Calves non-tender. No: Calf tenderness Perineum: Yes: Intact Activity: Ambulating - Labs Labs: CBC WBC 20.0 K/mm3 (4.0-10.0) H 01/21/19 06:52 RBC 2.94 M/mm3 (3.60-5.2) L 01/21/19 06:52 Hgb 8.5 GM/dL (10.7-15.3) L 01/21/19 06:52 Hct 25.4 % (32.4-45.2) L D 01/21/19 06:52 MCV 86.3 fl (80-96) 01/21/19 06:52 MCH 28.8 pg (25.7-33.7) 01/21/19 06:52 MCHC 33.3 g/dl (32.0-36.0) 01/21/19 06:52 RDW 15.8 % (11.6-15.6) H 01/21/19 06:52 Plt Count 200 K/MM3 (134-434) 01/21/19 06:52 MPV 9.7 fl (7.5-11.1) 01/21/19 06:52 Absolute Neuts (auto) 20.0 K/mm3 (1.5-8.0) H 01/20/19 08:16 Neutrophils % 78.1 % (42.8-82.8) 01/20/19 08:16 Neutrophils % (Manual) 82.2 % (42.8-82.8) 01/20/19 08:16 Band Neutrophils % 0.0 % 01/20/19 08:16 Lymphocytes % 11.3 % (8-40) D 01/20/19 08:16 Lymphocytes % (Manual) 9.9 % (8-40) 01/20/19 08:16 Monocytes % 10.4 % (3.8-10.2) H 01/20/19 08:16 Monocytes % (Manual) 8 % (3.8-10.2) 01/20/19 08:16 Eosinophils % 0.0 % (0-4.5) D 01/20/19 08:16 Eosinophils % (Manual) 0.0 % (0-4.5) 01/20/19 08:16 Basophils % 0.2 % (0-2.0) 01/20/19 08:16 Basophils % (Manual) 0.0 % (0-2.0) 01/20/19 08:16 Myelocytes % (Man) 0 % (0-2) 01/20/19 08:16 Promyelocytes % (Man) 0 % (0-2) 01/20/19 08:16 Blast Cells % (Manual) 0 % (0-0) 01/20/19 08:16 Nucleated RBC % 0 % (0-0) 01/20/19 08:16 Metamyelocytes 0 % (0-2) 01/20/19 08:16 Hypochromia 0 01/20/19 08:16 Platelet Estimate Normal 01/20/19 08:16 Polychromasia 1+ 01/20/19 08:16 Poikilocytosis 0 01/20/19 08:16 Anisocytosis 1+ 01/20/19 08:16 Microcytosis 1+ 01/20/19 08:16 Macrocytosis 0 01/20/19 08:16 Problem List - Problems (1) Complete placenta previa with hemorrhage, third trimester Code(s): O44.13 - COMPLETE PLACENTA PREVIA WITH HEMORRHAGE, THIRD TRIMESTER (2) Status post primary low transverse section Code(s): Z98.891 - HISTORY OF UTERINE SCAR FROM PREVIOUS SURGERY (3) Severe anemia Code(s): D64.9 - ANEMIA, UNSPECIFIED Assessment/Plan AFVSS s/p 2 units PRBC Afebrile since last evening, would likely d/c antibiotics after 24 hours afebrile regular diet PO pain meds continue current care
[2019-01-22] MEDS: CEFAZOLIN 1 GM/D5W 1 GM/50 ML BAG IVPB SCH ×2 (01:02→10:06)
[2019-01-22 08:05] LABS: BASO % 0.3 % (0-2.0); HEMATOCRIT 24.9 % (32.4-45.2); HEMOGLOBIN 8.3 GM/dL (10.7-15.3); MCHC 33.3 g/dl (32.0-36.0); MEAN CELL VOLUME 87.2 fl (80-96); MEAN PLT VOLUME 9.6 fl (7.5-11.1); MONO % 9.9 % (3.8-10.2); NEUT % 70.8 % (42.8-82.8); PLATELET COUNT 212 K/MM3 (134-434); RBC 2.85 M/mm3 (3.60-5.2); RDW 16.3 % (11.6-15.6); WHITE BLOOD COUNT 15.8 K/mm3 (4.0-10.0)
--- NOTE | 2019-01-22 09:17 | DS ---
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 Signs: Vital Signs Temperature 98.1 F 01/22/19 05:26 Pulse Rate 117 H 01/21/19 21:37 Respiratory Rate 18 01/21/19 21:37 Blood Pressure 127/54 L 01/21/19 21:37 O2 Sat by Pulse Oximetry (%) 98 01/19/19 21:00 Constitutional: No: No Distress Eyes: Yes: Conjunctiva Clear HENT: Yes: Atraumatic Neck: Yes: Supple Cardiovascular: Yes: Regular Rate and Rhythm Respiratory: Yes: Regular Gastrointestinal: Yes: Normal Bowel Sounds ...Rectal Exam: Yes: WNL Renal/: Yes: WNL External Genitalia: Yes: Normal Vaginal Exam: Yes: Normal Cervix: Yes: Normal Uterus: Yes: Firm ....Post : Yes: Uterus firm, Slight lochia rubra Breast(s): Yes: WNL Musculoskeletal: Yes: WNL Extremities: Yes: WNL Wound/Incision: Yes: Well Approximated, Steri Strips Neurological: Yes: Alert, Oriented ...Motor Strength: WNL Psychiatric: Yes: Alert, Oriented Labs: CBC, BMP 01/22/19 06:59 01/18/19 15:14 Delivery - Delivery Type of Anesthesia: Spinal Episiotomy/Laceration: None EBL (cc): 800 Delivery, Single - Stages of Labor Date of Delivery: 01/19/19 Time of Delivery: 15:56 Time Placenta Delivered: 15:57 - Condition of 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: Yes Name: Rip Kahn Infant Gender: Female Weight: 7 lb 7 oz Position: Left, OA Total Hours ROM (Hrs/Mins): 0/2 - 1 Minute Total Score: 9 5 Minutes Total Score: 9 - Feeding Plan Initial Plan: Elected not to breastfeed exclusively throughout hospitalization Discharge Summary Reason For Visit: THIRD TRIMESTER BLEEDING Current Active Problems Complete placenta previa with hemorrhage, third trimester (Acute) with 34 completed weeks gestation (Acute) Severe anemia (Acute) Status post primary low transverse section (Acute) Procedures: Principal: Primary Low Transverse Hospital Course: Patient admitted for vaginal bleeding associated with complete Placenta Previa at 34 weeks gestation. She received IM Betamethasone and was kept in strict bedrest until 36 weeks gestation. She underwent primary delivery on 01/19/19. Condition: Good - Instructions Diet, Activity, Other Instructions: Regular diet No driving, no lifting x 4 weeks. F/U with MD in 1 week Disposition: HOME - Home Medications Comprehensive Discharge Medication List: Ambulatory Orders 19 Tablet 1 tab PO DAILY 01/01/19
[2019-01-22] MEDS: DOCUSATE SODIUM 100 MG CAPSULE (FP) PO SCH (09:33)
[2019-01-22] MEDS: FERROUS SO4 325 MG TABLET (FP) PO SCH (09:33)
[2019-01-22] MEDS: PRENATAL VITAMINS W/ FOLIC ACID TABLET (FP) PO SCH (10:06)
[2019-01-22] MEDS: IBUPROFEN 600 MG TABLET (FP) PO PRN (12:31)
[2019-01-22 13:03] VITALS: BP 136/74; PULSE 81; TEMP 98.2
--- NOTE | 2019-01-27 14:47 | PATH ---
Surgical Pathology Report Patient Name: FINESSE KHAN Med. Rec. #: [id number] /Age/Gender: 1975 (Age: 43) / F Account: [id number] Location: [facility] ATTENDANT Taken: 01/19/2019 Received: 01/20/2019 Reported: 01/27/2019 Physicians: Jory Godinez M.D. Specimen(s) Received PLACENTA Clinical History , 35.6 weeks, complete placental previa Final Diagnosis PLACENTA: THIRD TRIMESTER PLACENTA. TRIVASCULAR CORD. MEMBRANES WITH NO DIAGNOSTIC ABNORMALITIES. Comment: Clinical history of placental previa noted. Electronically Signed Marii Mendieta M.D. Gross Description The specimen is received fresh labeled placenta and is a 601 gram, 16.5 x 11.0 x 4.2 cm. placenta with attached membranes and umbilical cord. The attached membranes are huff, thick, cloudy and insert marginally. The umbilical cord measures 21 cm. in length and averages 1.2 cm. in diameter. The cord inserts eccentrically, 1.5 cm. to the nearest margin. No true knots or strictures are identified. Cut surface of the umbilical cord reveals 3 vessels. The surface is flanagan blue with minimal fibrin deposition and multifocal defects. The maternal surface is red-brown, markedly fragmented and disrupted. Sectioning reveals red-brown, spongy parenchyma. No lesions are identified. 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 /01/26/2019 saudi01/26/2019
== END 2019-01-22 17:15 | disposition home or self-care (01) | DRG 786 ==
LOC: JDEL 19:40 → JLDR 01-02 10:30 → J3W 01-02 14:53 → JLDR 01-03 00:05 → J3W 01-05 08:30 → JLDR 01-19 14:40 → J3W 01-19 20:00
PROVIDERS: ADMIT Obstetrics & Gynecology; ATTEND Obstetrics & Gynecology
PROC: 3E0233Z Introduction of Anti-inflammatory into Muscle, Percutaneous Approach (ICD-10-PCS; 2019-01-02)
PROC: 10D00Z1 Extraction of Products of Conception, Low, Open Approach (ICD-10-PCS; principal; 2019-01-19)
PROC: 30233N1 Transfusion of Nonautologous Red Blood Cells into Peripheral Vein, Percutaneous Approach (ICD-10-PCS; 2019-01-20)
DX: O44.13 Complete placenta previa with hemorrhage, third trimester (principal); O60.14X0 Preterm labor third trimester with preterm delivery third trimester, not applicable or unspecified; D62 Acute posthemorrhagic anemia; O26.893 Other specified pregnancy related conditions, third trimester; Z3A.34 34 weeks gestation of pregnancy; Z37.0 Single live birth
CPT/HCPCS: 36415; 36430; 36511; 36600; 71045-TC-FY; 80048; 82803; 85025; 85027; 85610; 85730; 86593; 86850; 86900; 86901; 86922; 88307-TC; 96372; J0131; P9038; P9058